=== PATIENT | female | born 2000 | race Hispanic/Latino ===

== ENCOUNTER 2020-07-04 11:05 | Outpatient (CLI) | payer OTHER ==
--- NOTE | 2020-07-04 12:04 | ULT ---
ULTRASOUND ABDOMEN COMPLETE: DATE: 07/04/2020 HISTORY: 19-year-old female with abdominal bloating and pain FINDINGS: Gallbladder: Normal wall thickness. No gallstones or sludge identified. No pericholecystic fluid. Liver: Normal parenchymal echogenicity. Bilateral kidneys: No hydronephrosis. Pancreas: Nonspecific sonographic appearance. Common duct caliber: 3 mm. Abdominal aorta: No aneurysm Inferior vena cava: Unremarkable where visualized. Spleen: No splenomegaly IMPRESSION: Normal.
== END 2020-07-04 11:06 | disposition home or self-care (01) ==
LOC: BICULT 11:05
PROVIDERS: ATTEND Internal Medicine Gastroenterology
DX: E10.9 Type 1 diabetes mellitus without complications (principal); R14.0 Abdominal distension (gaseous); K59.00 Constipation, unspecified
CPT/HCPCS: 93975